=== PATIENT | male | born 1970 | race Caucasian/White ===

== ENCOUNTER 2017-01-07 20:59 | Emergency (ER) | payer MEDICARE ==
[~2017-01-07 20:59] MED LIST: ALBUTEROL0.63 MG/3 NEB; ALLEGRA ALLERG180 MG PO; FARXIGA5 MG PO; IBUPROFEN800 MG PO; MEDROL4 M1 PO; NOVOLOG100 UNIT/2 SQ; TOPROL XL100 MG PO; TRADJENTA5 MG PO; TYLENOL325 M1 PO; ZITHROMAX250 MG PO; ZOLOFT50 MG PO
[2017-01-07 22:57] LABS: URINE BILIRUBIN NEGATIVE (NEGATIVE); URINE BLOOD NEGATIVE (NEGATIVE); URINE KETONE NEGATIVE (NEGATIVE); URINE LEUKOCYTE ESTERASE TRACE (NEGATIVE); URINE NITRATE NEGATIVE (NEGATIVE); URINE PROTEIN NEGATIVE (NEGATIVE); UROBILINOGEN NORMAL mg/dL (<1.0)
[2017-01-07 23:14] LABS: URINE GLUCOSE (UA) 1000 mg/dL (NORMAL); URINE RBC 0-5 /[HPF] (0-2); URINE WBC 0-5 /[HPF] (0-3)
== END 2017-01-08 00:25 | disposition other institution (70) ==
LOC: ER 20:59
PROVIDERS: General Practice
DX: D35.00 Benign neoplasm of unspecified adrenal gland (principal); R10.9 Unspecified abdominal pain; R53.1 Weakness; R52 Pain, unspecified; E11.9 Type 2 diabetes mellitus without complications; F41.9 Anxiety disorder, unspecified; E29.1 Testicular hypofunction; F17.210 Nicotine dependence, cigarettes, uncomplicated; Z91.013 Allergy to seafood; Z79.899 Other long term (current) drug therapy
CPT/HCPCS: 74150; 80307; 81001; 87400; 99284-25

== ENCOUNTER 2017-01-31 09:42 | Emergency (ER) | payer MEDICARE | END 2017-01-31 12:28 | disposition home or self-care (01) | LOC: ER 09:42 | DX: R10.9 Unspecified abdominal pain (principal); E11.9 Type 2 diabetes mellitus without complications; I10 Essential (primary) hypertension; M54.9 Dorsalgia, unspecified; F17.200 Nicotine dependence, unspecified, uncomplicated; Z79.899 Other long term (current) drug therapy; Z79.84 Long term (current) use of oral hypoglycemic drugs ==

== ENCOUNTER 2017-02-27 07:58 | Emergency (ER) | payer MEDICARE ==
[2017-02-27 08:59] LABS: BASO % 0.3 % (0.2-1.2); EOS # 0.1 10_X3_uL (0.0-0.5); EOS % 1.3 % (0.8-7.0); GRAN # 5.9 10_X3_uL (1.8-5.4); GRAN % 64.1 % (34.0-67.9); HEMATOCRIT 50.6 % (40-51); HEMOGLOBIN 17.7 g/dL (13.7-17.5); LYMPH # 2.3 10_X3_uL (1.3-3.6); LYMPH % 24.8 % (21.8-53.1); MEAN CORPUSCULAR HEMOGLOBIN 30.3 pg (27.0-33.0); MEAN CORPUSCULAR VOLUME 86.6 fL (79-92); MEAN PLATELET VOLUME 11.3 fl (7.5-11.5); MONO # 0.9 10_X3_uL (0.3-0.8); MONO % 9.5 % (5.3-12.2); PLATELET COUNT 183 x10_3/uL (163-337); RED BLOOD COUNT 5.84 x10_6/uL (4.6-6.1); RED CELL DISTRIBUTION WIDTH 13.5 % (11.6-14.4); WHITE BLOOD COUNT 9.2 x10_3/uL (4.2-9.1)
[2017-02-27 09:06] LABS: PH,URINE 6.5 (5.0 - 9.0); URINE BILIRUBIN NEGATIVE (NEGATIVE); URINE BLOOD NEGATIVE (NEGATIVE); URINE KETONE NEGATIVE (NEGATIVE); URINE LEUKOCYTE ESTERASE TRACE (NEGATIVE); URINE NITRATE NEGATIVE (NEGATIVE); URINE PROTEIN NEGATIVE (NEGATIVE); UROBILINOGEN NORMAL mg/dL (<1.0)
[2017-02-27 09:14] LABS: ALKALINE PHOSPHATASE 49 U/L (50-136); ALT/SGPT 24 U/L (7.53-40.17); AMYLASE 43 U/L (15.62-74.58); AST/SGOT 14 U/L (6.66-35.34); BILIRUBIN,TOTAL 0.24 mg/dL (0.0-1.0); BLOOD UREA NITROGEN 20 mg/dL (7-18); CALCIUM 9.4 mg/dL (8.7-10.7); CARBON DIOXIDE 25 mmol/L (21-32); CREATININE 0.9 mg/dL (0.6-1.3); LIPASE 38 U/L (6.75-60.75); POTASSIUM 4.6 mmol/L (3.5-5.1); SODIUM 137 mmol/L (136-145); TOTAL PROTEIN 7.3 gm/dL (6.4-8.2)
[2017-02-27 09:20] LABS: URINE GLUCOSE (UA) 1000 mg/dL (NORMAL)
[2017-02-27 09:21] LABS: URINE BACTERIA TRACE (NONE SEEN); URINE RBC 0-5 /[HPF] (0-2); URINE SQUAMOUS EPITHELIAL CELL 0-10 /[HPF] (NONE SEEN); URINE WBC 0-5 /[HPF] (0-3)
[2017-02-27 09:26] LABS: GLUCOSE,RANDOM 404 mg/dL (70-99)
== END 2017-02-27 10:23 | disposition home or self-care (01) ==
LOC: ER 07:58
PROVIDERS: Family Medicine
DX: R10.32 Left lower quadrant pain (principal); E11.9 Type 2 diabetes mellitus without complications; F17.210 Nicotine dependence, cigarettes, uncomplicated; Z79.899 Other long term (current) drug therapy; Z91.013 Allergy to seafood
CPT/HCPCS: 36415; 80053; 81001; 82150; 82962; 83690; 85025; 99284

== ENCOUNTER 2017-03-07 01:27 | Emergency (ER) | payer MEDICARE ==
[2017-03-07 02:28] LABS: BASO % 0.4 % (0.2-1.2); EOS # 0.2 10_X3_uL (0.0-0.5); EOS % 1.9 % (0.8-7.0); GRAN # 7.3 10_X3_uL (1.8-5.4); GRAN % 63.8 % (34.0-67.9); HEMATOCRIT 50.5 % (40-51); HEMOGLOBIN 17.9 g/dL (13.7-17.5); LYMPH % 26.4 % (21.8-53.1); MEAN CORPUSCULAR HEMOGLOBIN 30.1 pg (27.0-33.0); MEAN CORPUSCULAR HGB CONC 35.4 g/dL (32.0-36.0); MEAN PLATELET VOLUME 11.5 fl (7.5-11.5); MONO # 0.9 10_X3_uL (0.3-0.8); MONO % 7.5 % (5.3-12.2); PLATELET COUNT 183 x10_3/uL (163-337); RED BLOOD COUNT 5.94 x10_6/uL (4.6-6.1); RED CELL DISTRIBUTION WIDTH 13.2 % (11.6-14.4); WHITE BLOOD COUNT 11.4 x10_3/uL (4.2-9.1)
[2017-03-07 02:37] LABS: URINE BILIRUBIN NEGATIVE (NEGATIVE); URINE BLOOD NEGATIVE (NEGATIVE); URINE KETONE NEGATIVE (NEGATIVE); URINE LEUKOCYTE ESTERASE NEGATIVE (NEGATIVE); URINE NITRATE NEGATIVE (NEGATIVE); URINE PROTEIN NEGATIVE (NEGATIVE); UROBILINOGEN NORMAL mg/dL (<1.0)
[2017-03-07 02:38] LABS: URINE GLUCOSE (UA) 1000 mg/dL (NORMAL)
[2017-03-07 02:41] LABS: ALBUMIN 3.9 gm/dL (3.4-5.0); ALKALINE PHOSPHATASE 51 U/L (50-136); ALT/SGPT 24 U/L (7.53-40.17); AST/SGOT 16 U/L (6.66-35.34); BILIRUBIN,TOTAL 0.27 mg/dL (0.0-1.0); BLOOD UREA NITROGEN 20 mg/dL (7-18); CALCIUM 9.3 mg/dL (8.7-10.7); CARBON DIOXIDE 24 mmol/L (21-32); GLUCOSE,RANDOM 293 mg/dL (70-99); POTASSIUM 3.9 mmol/L (3.5-5.1); SODIUM 138 mmol/L (136-145); TOTAL PROTEIN 7.5 gm/dL (6.4-8.2)
== END 2017-03-07 03:26 | disposition home or self-care (01) ==
LOC: ER 01:27
PROVIDERS: Internal Medicine
DX: R10.9 Unspecified abdominal pain (principal); F32.9 Major depressive disorder, single episode, unspecified; Z98.890 Other specified postprocedural states; F17.210 Nicotine dependence, cigarettes, uncomplicated; Z91.013 Allergy to seafood; Z79.899 Other long term (current) drug therapy; Z79.84 Long term (current) use of oral hypoglycemic drugs
CPT/HCPCS: 36415; 74150; 80053; 80307; 81003; 85025; 99070; 99284-25